=== PATIENT | female | born 1965 | race Caucasian/White ===

== ENCOUNTER 2021-10-01 16:21 | Inpatient (IN) ==
[2021-10-01] MEDS ORDERED: Ipratropium/Albuterol Neb 3 ML IH ONE (17:34)
[2021-10-01] MEDS ORDERED: Furosemide 40 MG/4 ML VIAL IVP ONE (17:34)
[2021-10-01 18:13] LABS: Basophils % 0.3 %; Eosinophils % 0.3 %; Hematocrit 40.4 % (35.3-44.9); Hemoglobin 12.7 g/dL (11.5-15.4); Immature Granulocytes % 0.4 % (0-4); Lymphocytes # 1.6 K/mcL (0.6-4.6); Lymphocytes % 14.6 %; Mean Corpuscular HGB Conc 31.4 g/dL (31.6-35.5); Mean Corpuscular Volume 95.3 fL (83.0-100.0); Mean Platelet Volume 9.8 fL (9.4-12.4); Monocytes # 0.5 K/mcL (0.0-1.3); Monocytes % 4.5 %; Neutrophils # 8.5 K/mcL (1.6-8.9); Platelet Count 316 K/mcL (140-400); Red Blood Count 4.24 M/mcL (3.82-4.97); Red Cell Distribution Width 15.7 % (11.5-14.5); Segmented Neutrophils % 79.9 %; White Blood Count 10.6 K/mcL (4.3-11.1)
[2021-10-01 18:35] LABS: BUN/Creatinine Ratio 21 (6-26); Blood Urea Nitrogen 11 mg/dL (6-20); Calcium 7.6 mg/dL (8.6-10.3); Carbon Dioxide 38 mEq/L (23-29); Chloride 95 mEq/L (98-107); Glucose 102 mg/dL (70-105); Osmolality,Calculated 296 (280-300); Potassium 3.1 mEq/L (3.5-5.1); Sodium 143 mEq/L (136-145); eGFR For African Americans > 60 (> 60); eGFR For Non-African Americans > 60 (> 60)
[2021-10-01 18:36] LABS: Troponin I < 0.03 ng/mL (< 0.04)
[2021-10-01] MEDS ORDERED: Naloxone 0.4 MG/ML INJ IVP PRN (20:10)
[2021-10-01] MEDS ORDERED: Ondansetron 4 MG/2 ML VIAL IVP PRN (20:10)
[2021-10-01] MEDS ORDERED: Acetaminophen 325 MG TABLET PO PRN (20:10)
[2021-10-01] MEDS ORDERED: Perflutren Lipid Microsphere 1.3 ML in 0.9 % Sodium Chloride 8.7 ML IVP PRN (20:24)
[2021-10-01] MEDS ORDERED: predniSONE 20 MG TABLET PO SCH (20:30)
[2021-10-01] MEDS ORDERED: Potassium Chloride Elixir 20 MEQ/15 ML UDC PO ONE (20:36)
[2021-10-01] MEDS ORDERED: Saliva Stimulant 44.3ml BOTTLE PO PRN (20:55)
[2021-10-01] MEDS ORDERED: Saline Nasal Spray 44 ML BOTTLE NS PRN (20:55)
[2021-10-01] MEDS ORDERED: Nicotine 2 MG GUM BC PRN (20:57)
[2021-10-01] MEDS ORDERED: Ipratropium/Albuterol Neb 3 ML IH SCH (22:00)
[2021-10-01] MEDS: Nicotine 21 MG PATCH.TD24 TD SCH (22:25)
[2021-10-01 22:27] LABS: Albumin 3.8 g/dL (3.5-5.7); Albumin/Globulin Ratio 1.4 (1.1-2.2); Bilirubin,Direct 0.1 mg/dL (0.0-0.2); Bilirubin,Indirect 0.3 mg/dL (0.0-1.0); Bilirubin,Total 0.4 mg/dL (0.3-1.0); Globulin 2.8 g/dL (2.4-3.5); Total Protein 6.6 g/dL (6.4-8.9)
[2021-10-01] MEDS: Artificial Tears SOLN 15 ML BOTTLE BOTH EYES SCH (22:27)
[2021-10-01] MEDS: Melatonin 3 MG TABLET PO PRN (22:28)
[2021-10-01] MEDS: Lactobacillus 1 EACH CAP.SPRINK PO SCH (22:28)
[2021-10-01] MEDS: Chlorhexidine Rinse 15 ML MOUTHWASH MM SCH (22:29)
[2021-10-01] MEDS: Calcium Gluconate 1gm/50mL 1 GM/50 ML BAG IVPB SCH ×2 (22:30→23:47)
[2021-10-01] MEDS: Budesonide/Formoterol 160/4.5 1 PUFF INH IH SCH (22:44)
[2021-10-01] MEDS: Ipratropium/Albuterol Neb 3 ML IH SCH ×2 (22:44→22:47)
[2021-10-01] MEDS: NIFEdipine XL (24 HR) 60 MG TAB.ER.24 PO SCH (22:59)
[2021-10-01] MEDS ORDERED: Azithromycin 500 MG in 0.9 % Sodium Chloride 250 ML IVPB SCH (23:00)
[2021-10-02 00:23] LABS: Adenovirus Not Detected (Not Detect); Bordetella Pertussis Not Detected (Not Detect); Chlamydophila pneumoniae Not Detected (Not Detect); Coronavirus 229E Not Detected (Not Detect); Coronavirus HKU1 Not Detected (Not Detect); Coronavirus NL63 Not Detected (Not Detect); Coronavirus OC43 Not Detected (Not Detect); Human Metapneumovirus Not Detected (Not Detect); Human Rhinovirus/Enterovirus Not Detected (Not Detect); Influenza A Subtype 2009 H1 Not Detected (Not Detect); Influenza B Not Detected (Not Detect); Mycoplasma pneumoniae Not Detected (Not Detect); Parainfluenza Virus 1 Not Detected (Not Detect); Parainfluenza Virus 2 Not Detected (Not Detect); Parainfluenza Virus 3 Not Detected (Not Detect); Parainfluenza Virus 4 Not Detected (Not Detect); Respiratory Syncytial Virus Not Detected (Not Detect); SARS-CoV-2 Not Detected (Not Detect)
[2021-10-02] MEDS: *HR* OxyCODONE/APAP 5/325 TABLET PO PRN ×3 (02:46→20:26)
[2021-10-02 03:21] LABS: Basophils % 0.4 %; Eosinophils % 0.3 %; Hematocrit 38.7 % (35.3-44.9); Hemoglobin 11.9 g/dL (11.5-15.4); Immature Granulocytes % 0.4 % (0-4); Lymphocytes # 1.7 K/mcL (0.6-4.6); Lymphocytes % 17.8 %; Mean Corpuscular HGB Conc 30.7 g/dL (31.6-35.5); Mean Corpuscular Hemoglobin 29.8 pg (28.0-33.3); Mean Corpuscular Volume 96.8 fL (83.0-100.0); Mean Platelet Volume 10.3 fL (9.4-12.4); Monocytes # 0.5 K/mcL (0.0-1.3); Monocytes % 4.7 %; Neutrophils # 7.2 K/mcL (1.6-8.9); Platelet Count 274 K/mcL (140-400); Red Cell Distribution Width 15.8 % (11.5-14.5); Segmented Neutrophils % 76.4 %; White Blood Count 9.5 K/mcL (4.3-11.1)
[2021-10-02 03:29] LABS: Prothrombin Time 11.3 Seconds (9.4-12.1)
[2021-10-02 03:31] LABS: Activated Partial Thrombo Time 29.4 Seconds (26.0-36.0)
[2021-10-02 03:40] LABS: Alanine Aminotransferase 34 Units/L (7-52); Albumin 3.5 g/dL (3.5-5.7); Albumin/Globulin Ratio 1.7 (1.1-2.2); Alkaline Phosphatase 135 Units/L (34-104); Aspartate Amino Transferase 68 Units/L (13-39); BUN/Creatinine Ratio 20 (6-26); Bilirubin,Total 0.4 mg/dL (0.3-1.0); Blood Urea Nitrogen 10 mg/dL (6-20); Calcium 7.6 mg/dL (8.6-10.3); Carbon Dioxide 39 mEq/L (23-29); Chloride 95 mEq/L (98-107); Globulin 2.1 g/dL (2.4-3.5); Glucose 104 mg/dL (70-105); Magnesium 1.1 mg/dL (1.6-2.6); Osmolality,Calculated 297 (280-300); Phosphorous 3.1 mg/dL (2.7-4.5); Potassium 3.2 mEq/L (3.5-5.1); Sodium 144 mEq/L (136-145); Total Protein 5.6 g/dL (6.4-8.9); Troponin I 0.03 ng/mL (< 0.04); eGFR For African Americans > 60 (> 60); eGFR For Non-African Americans > 60 (> 60)
[2021-10-02] MEDS: Ipratropium/Albuterol Neb 3 ML IH SCH ×6 (03:46→23:34)
[2021-10-02] MEDS ORDERED: Potassium Chloride Elixir 20 MEQ/15 ML UDC PO ONE (06:08)
[2021-10-02] MEDS: Calcium Gluconate 1gm/50mL 1 GM/50 ML BAG IVPB SCH ×2 (06:49→07:52)
[2021-10-02] MEDS: Budesonide/Formoterol 160/4.5 1 PUFF INH IH SCH ×2 (07:43→20:08)
[2021-10-02] MEDS: Artificial Tears SOLN 15 ML BOTTLE BOTH EYES SCH ×2 (08:02→20:27)
[2021-10-02] MEDS: Chlorhexidine Rinse 15 ML MOUTHWASH MM SCH (08:03)
[2021-10-02] MEDS: NIFEdipine XL (24 HR) 60 MG TAB.ER.24 PO SCH (08:05)
[2021-10-02] MEDS: Lactobacillus 1 EACH CAP.SPRINK PO SCH ×2 (08:05→20:26)
[2021-10-02] MEDS: Cholecalciferol (D-3) 1,000 UNIT (25MCG) TABLET PO SCH (08:05)
[2021-10-02] MEDS: lisinopriL 20 MG TABLET PO SCH (08:05)
[2021-10-02] MEDS: Multivit/Ca/Min/Fe/FA 1 TAB TABLET PO SCH (08:05)
[2021-10-02] MEDS: *HR* Enoxaparin 40 MG/0.4 ML SYRINGE SQ SCH ×2 (08:10→20:26)
[2021-10-02] MEDS: Nicotine 21 MG PATCH.TD24 TD SCH (08:10)
[2021-10-02] MEDS ORDERED: Albumin 25% 25gram/100mL 25 GM/100 ML IV.SOLN IVPB SCH (08:30)
[2021-10-02] MEDS ORDERED: Furosemide 40 MG/4 ML VIAL IVP SCH (09:00)
[2021-10-02] MEDS: Furosemide 40 MG/4 ML VIAL IVP SCH ×2 (09:41→20:27)
[2021-10-02] MEDS: MethylPREDNISolone 40 MG/ML VIAL IVP SCH (22:07)
[2021-10-03] MEDS: Ipratropium/Albuterol Neb 3 ML IH SCH ×6 (03:39→23:57)
[2021-10-03] MEDS: *HR* OxyCODONE/APAP 5/325 TABLET PO PRN ×4 (03:59→22:35)
[2021-10-03] MEDS: MethylPREDNISolone 40 MG/ML VIAL IVP SCH ×3 (05:33→20:31)
[2021-10-03 06:22] LABS: Basophils % 0.1 %; Hematocrit 40.4 % (35.3-44.9); Hemoglobin 12.7 g/dL (11.5-15.4); Immature Granulocytes % 0.5 % (0-4); Lymphocytes # 0.4 K/mcL (0.6-4.6); Lymphocytes % 4.7 %; Mean Corpuscular HGB Conc 31.4 g/dL (31.6-35.5); Mean Corpuscular Hemoglobin 30.1 pg (28.0-33.3); Mean Corpuscular Volume 95.7 fL (83.0-100.0); Mean Platelet Volume 10.4 fL (9.4-12.4); Monocytes # 0.1 K/mcL (0.0-1.3); Monocytes % 0.6 %; Neutrophils # 7.4 K/mcL (1.6-8.9); Platelet Count 323 K/mcL (140-400); Red Blood Count 4.22 M/mcL (3.82-4.97); Red Cell Distribution Width 15.5 % (11.5-14.5); Segmented Neutrophils % 94.1 %; White Blood Count 7.8 K/mcL (4.3-11.1)
[2021-10-03 06:44] LABS: BUN/Creatinine Ratio 30 (6-26); Blood Urea Nitrogen 13 mg/dL (6-20); Calcium 8.3 mg/dL (8.6-10.3); Carbon Dioxide 39 mEq/L (23-29); Chloride 89 mEq/L (98-107); Glucose 192 mg/dL (70-105); Magnesium 1.6 mg/dL (1.6-2.6); Osmolality,Calculated 293 (280-300); Potassium 3.9 mEq/L (3.5-5.1); Sodium 139 mEq/L (136-145); eGFR For African Americans > 60 (> 60); eGFR For Non-African Americans > 60 (> 60)
[2021-10-03] MEDS ORDERED: Azithromycin 250 MG TABLET PO SCH (09:00)
[2021-10-03] MEDS: Cholecalciferol (D-3) 1,000 UNIT (25MCG) TABLET PO SCH (09:06)
[2021-10-03] MEDS: Furosemide 40 MG/4 ML VIAL IVP SCH ×2 (09:06→20:32)
[2021-10-03] MEDS: Multivit/Ca/Min/Fe/FA 1 TAB TABLET PO SCH (09:06)
[2021-10-03] MEDS: Lactobacillus 1 EACH CAP.SPRINK PO SCH ×2 (09:07→20:31)
[2021-10-03] MEDS: NIFEdipine XL (24 HR) 60 MG TAB.ER.24 PO SCH (09:07)
[2021-10-03] MEDS: Nicotine 21 MG PATCH.TD24 TD SCH (09:07)
[2021-10-03] MEDS: lisinopriL 20 MG TABLET PO SCH (09:07)
[2021-10-03] MEDS: *HR* Enoxaparin 40 MG/0.4 ML SYRINGE SQ SCH ×2 (09:07→20:31)
[2021-10-03] MEDS: Artificial Tears SOLN 15 ML BOTTLE BOTH EYES SCH ×2 (09:20→20:32)
[2021-10-03] MEDS: Budesonide/Formoterol 160/4.5 1 PUFF INH IH SCH ×2 (10:45→20:23)
[2021-10-04 01:47] LABS: Hematocrit 37.7 % (35.3-44.9); Mean Corpuscular HGB Conc 31.8 g/dL (31.6-35.5); Mean Corpuscular Hemoglobin 30.5 pg (28.0-33.3); Mean Corpuscular Volume 95.9 fL (83.0-100.0); Mean Platelet Volume 10.2 fL (9.4-12.4); Platelet Count 314 K/mcL (140-400); Red Blood Count 3.93 M/mcL (3.82-4.97); Red Cell Distribution Width 15.6 % (11.5-14.5); White Blood Count 8.9 K/mcL (4.3-11.1)
[2021-10-04 01:48] LABS: Basophils % 0.1 %; Eosinophils % 0.1 %; Immature Granulocytes % 0.7 % (0-4); Lymphocytes # 0.4 K/mcL (0.6-4.6); Lymphocytes % 4.3 %; Monocytes # 0.1 K/mcL (0.0-1.3); Monocytes % 1.3 %; Neutrophils # 8.3 K/mcL (1.6-8.9); Segmented Neutrophils % 93.5 %
[2021-10-04 02:51] LABS: BUN/Creatinine Ratio 39 (6-26); Blood Urea Nitrogen 21 mg/dL (6-20); Calcium 8.7 mg/dL (8.6-10.3); Carbon Dioxide 33 mEq/L (23-29); Chloride 91 mEq/L (98-107); Glucose 265 mg/dL (70-105); Magnesium 1.5 mg/dL (1.6-2.6); Osmolality,Calculated 298 (280-300); Potassium 3.8 mEq/L (3.5-5.1); Sodium 138 mEq/L (136-145); eGFR For African Americans > 60 (> 60); eGFR For Non-African Americans > 60 (> 60)
[2021-10-04] MEDS: Ipratropium/Albuterol Neb 3 ML IH SCH ×6 (04:01→23:34)
[2021-10-04] MEDS: MethylPREDNISolone 40 MG/ML VIAL IVP SCH ×3 (05:26→21:24)
[2021-10-04] MEDS: Budesonide/Formoterol 160/4.5 1 PUFF INH IH SCH ×2 (07:53→20:20)
[2021-10-04] MEDS: *HR* OxyCODONE/APAP 5/325 TABLET PO PRN ×3 (08:08→21:57)
[2021-10-04] MEDS: Nicotine 21 MG PATCH.TD24 TD SCH (09:02)
[2021-10-04] MEDS: *HR* Enoxaparin 40 MG/0.4 ML SYRINGE SQ SCH ×2 (09:02→19:38)
[2021-10-04] MEDS: Artificial Tears SOLN 15 ML BOTTLE BOTH EYES SCH ×2 (09:02→19:37)
[2021-10-04] MEDS: Lactobacillus 1 EACH CAP.SPRINK PO SCH ×2 (09:02→19:38)
[2021-10-04] MEDS: Multivit/Ca/Min/Fe/FA 1 TAB TABLET PO SCH (09:02)
[2021-10-04] MEDS: lisinopriL 20 MG TABLET PO SCH (09:02)
[2021-10-04] MEDS: Furosemide 40 MG/4 ML VIAL IVP SCH ×2 (09:02→19:37)
[2021-10-04] MEDS: Cholecalciferol (D-3) 1,000 UNIT (25MCG) TABLET PO SCH (09:02)
[2021-10-04] MEDS: carvediloL 6.25 MG TABLET PO SCH ×2 (09:31→17:40)
[2021-10-05 03:08] LABS: BUN/Creatinine Ratio 43 (6-26); Blood Urea Nitrogen 29 mg/dL (6-20); Calcium 8.3 mg/dL (8.6-10.3); Carbon Dioxide 34 mEq/L (23-29); Chloride 92 mEq/L (98-107); Glucose 282 mg/dL (70-105); Magnesium 1.8 mg/dL (1.6-2.6); Osmolality,Calculated 298 (280-300); Potassium 4.2 mEq/L (3.5-5.1); Sodium 136 mEq/L (136-145); eGFR For African Americans > 60 (> 60); eGFR For Non-African Americans > 60 (> 60)
[2021-10-05] MEDS: Melatonin 3 MG TABLET PO PRN (03:20)
[2021-10-05] MEDS: Ipratropium/Albuterol Neb 3 ML IH SCH ×3 (04:16→11:10)
[2021-10-05] MEDS: MethylPREDNISolone 40 MG/ML VIAL IVP SCH (04:54)
[2021-10-05] MEDS: *HR* OxyCODONE/APAP 5/325 TABLET PO PRN (05:00)
[2021-10-05] MEDS: Budesonide/Formoterol 160/4.5 1 PUFF INH IH SCH (07:41)
[2021-10-05 07:48] VITALS: BP 165/89; PULSE 79; TEMP 97.7
[2021-10-05] MEDS: Cholecalciferol (D-3) 1,000 UNIT (25MCG) TABLET PO SCH (08:50)
[2021-10-05] MEDS: Lactobacillus 1 EACH CAP.SPRINK PO SCH (08:50)
[2021-10-05] MEDS: Nicotine 21 MG PATCH.TD24 TD SCH (08:50)
[2021-10-05] MEDS: Artificial Tears SOLN 15 ML BOTTLE BOTH EYES SCH (08:51)
[2021-10-05] MEDS: Furosemide 40 MG/4 ML VIAL IVP SCH (08:51)
[2021-10-05] MEDS: lisinopriL 20 MG TABLET PO SCH (08:51)
[2021-10-05] MEDS: Multivit/Ca/Min/Fe/FA 1 TAB TABLET PO SCH (08:51)
[2021-10-05] MEDS: carvediloL 6.25 MG TABLET PO SCH (08:51)
[2021-10-05] MEDS: *HR* Enoxaparin 40 MG/0.4 ML SYRINGE SQ SCH (08:51)
[2021-10-05] MEDS ORDERED: carvediloL 6.25 MG TABLET PO ONE (09:41)
[2021-10-05 11:12] VITALS: O2SAT 97
== END 2021-10-05 13:05 | disposition home or self-care (01) | DRG 140 ==
LOC: EMEROOARM 16:21 → 2ANU 16:21 → SUATTDRO 20:10 → 2NENU 20:13
PROVIDERS: ADMIT Internal Medicine; ATTEND Hospitalist